=== PATIENT | male | born 1995 | race American Indian/Alaskan Native ===

== ENCOUNTER 2016-10-21 13:44 | Emergency (ER) | payer OTHER ==
[2016-10-21 13:44] VITALS: BMI 23.1
[2016-10-21 13:57] VITALS: BP 113/71; PULSE 60; RESP 18; TEMP 97.9; O2SAT 100
--- NOTE | 2016-10-21 14:06 | C.PDOC ---
History Of Present Illness 21 y/o male presents to the ED for evaluation of an injury to his left thumb which he sustained while at work earlier today. Patient states a cardboard box fell onto his left thumb and he now has lacerations to the area. He denies any other injuries, extremity numbness/weakness, or active bleeding. Time Seen by Provider: 10/21/16 13:54 Chief Complaint (Nursing): Abnormal Skin Integrity History Per: Patient History/Exam Limitations: no limitations Onset/Duration Of Symptoms: Hrs Current Symptoms Are (Timing): Still Present Location Of Injury: Left: Hand (thumb) Additional History Per: Patient Past Medical History Reviewed: Historical Data, Nursing Documentation, Vital Signs Vital Signs: Last Vital Signs Temp 97.9 F 10/21/16 13:50 Pulse 60 10/21/16 13:50 Resp 18 10/21/16 13:50 BP 113/71 10/21/16 13:50 Pulse Ox 100 10/21/16 18:34 - Medical History PMH: No Chronic Diseases Surgical History: No Surg Hx - [facility] Procedures LINEAR REP LID LACER (02/26/13) Family History: States: Unknown Family Hx - Social History Hx Tobacco Use: No Hx Alcohol Use: No Hx Substance Use: Yes - Immunization History Hx Tetanus Toxoid Vaccination: Yes Hx Influenza Vaccination: Yes Hx Pneumococcal Vaccination: No Review Of Systems Except As Marked, All Systems Reviewed And Found Negative. Skin: Positive for: Other (+laceration to left thumb. no active bleeding ) Neurological: Negative for: Weakness, Numbness Physical Exam - Physical Exam Appears: Non-toxic, No Acute Distress Skin: Normal Color, Warm, Dry Head: Atraumatic Eye(s): bilateral: Normal Inspection Extremity: Normal ROM, No Tenderness, Capillary Refill (less than 2 seconds ), No Deformity, No Swelling, Other (+left 1st digit: two, 8mm superficial lacerations. no active bleeding. no joint tenderness ) Pulses: Left Radial: Normal Neurological/Psych: Normal Speech, Normal Cognition, Normal Motor, Normal Sensation Gait: Steady ED Course And Treatment O2 Sat by Pulse Oximetry: 100 (on RA) Pulse Ox Interpretation: Normal Medical Decision Making Medical Decision Making: Wound cleaned and dressed Plan daily soap and water wash Disposition Counseled Patient/Family Regarding: Diagnosis, Need For Followup - Disposition Disposition: HOME/ ROUTINE Disposition Time: 14:08 Condition: GOOD Instructions: Acute Wound Care (ED) Forms: Work Excuse - Clinical Impression Clinical Impression: Thumb laceration - Scribe Statement The provider has reviewed the documentation as recorded by the Scribe (Samantha Downey) Provider Attestation: All medical record entries made by the Scribe were at my direction and personally dictated by me. I have reviewed the chart and agree that the record accurately reflects my personal performance of the history, physical exam, medical decision making, and the department course for this patient. I have also personally directed, reviewed, and agree with the discharge instructions and disposition.
== END 2016-10-21 14:21 | disposition home or self-care (01) ==
LOC: C.ER 13:44
DX: S61.012A Laceration without foreign body of left thumb without damage to nail, initial encounter (principal); W20.8XXA Other cause of strike by thrown, projected or falling object, initial encounter; Y92.89 Other specified places as the place of occurrence of the external cause; Y99.0 Civilian activity done for income or pay

== ENCOUNTER 2016-10-22 03:05 | Emergency (ER) | payer OTHER ==
[2016-10-22 03:05] VITALS: BMI 23.1
[2016-10-22 03:21] VITALS: O2SAT 98
--- NOTE | 2016-10-22 04:41 | C.PDOC ---
History Of Present Illness Patient is a 21 year old male who presents to the ER with a complaint of having a cracked right lower 2nd molar with gingival swelling and tenderness for the past 2 days. Denies fever or recent injury. Time Seen by Provider: 10/22/16 03:31 Chief Complaint (Nursing): Dental Pain History Per: Patient History/Exam Limitations: no limitations Onset/Duration Of Symptoms: Days (2) Current Symptoms Are (Timing): Still Present Recent travel outside of the [place]: No Past Medical History Reviewed: Historical Data, Nursing Documentation, Vital Signs Vital Signs: Last Vital Signs Temp 98.3 F 10/22/16 04:49 Pulse 62 10/22/16 04:49 Resp 18 10/22/16 04:49 BP 118/73 10/22/16 04:49 Pulse Ox 98 10/22/16 06:18 - Medical History PMH: No Chronic Diseases Surgical History: No Surg Hx - [facility] Procedures LINEAR REP LID LACER (02/26/13) Family History: States: Unknown Family Hx - Social History Hx Tobacco Use: No Hx Alcohol Use: No Hx Substance Use: Yes - Immunization History Hx Tetanus Toxoid Vaccination: Yes Hx Influenza Vaccination: Yes Hx Pneumococcal Vaccination: No Review Of Systems Constitutional: Negative for: Fever ENT: Positive for: Mouth Pain (Gingiva), Mouth Swelling (Gingiva) Physical Exam - Physical Exam Appears: Non-toxic, No Acute Distress Skin: Normal Color, Warm, Dry Head: Atraumatic, Normacephalic Eye(s): bilateral: Normal Inspection, PERRL, EOMI Ear(s): Bilateral: Normal Nose: Normal, No Tenderness Oral Mucosa: Moist Tongue: Normal Appearing, No Swelling Lips: Normal Appearing, No Swelling Teeth: Other (Cracked right lower 2nd molar) Gingiva: Swelling (Mild) Throat: No Erythema, No Exudate Neck: Normal ROM, Supple Neurological/Psych: Oriented x3, Normal Speech, Normal Cognition ED Course And Treatment O2 Sat by Pulse Oximetry: 98 (Room air) Pulse Ox Interpretation: Normal Progress Note: Amoxicillin and toradol administered. Disposition - Disposition Referrals: [facility] [Outside] Disposition: HOME/ ROUTINE Disposition Time: 04:37 Condition: GOOD Additional Instructions: Follow up with the dentist within 1-2 days without. return if worsened. Prescriptions: Amoxicillin [Amoxil 500 mg Cap] 500 mg PO TID #29 cap Ibuprofen [Motrin Tab] 800 mg PO TID #20 tab traMADol [Ultram] 50 mg PO Q6 PRN #10 tab PRN Reason: Pain Instructions: Dental Caries (ED) Forms: Work Excuse - Clinical Impression Clinical Impression: Dental caries - Scribe Statement The provider has reviewed the documentation as recorded by the Scribe Chad Melchor All medical record entries made by the Scribe were at my direction and personally dictated by me. I have reviewed the chart and agree that the record accurately reflects my personal performance of the history, physical exam, medical decision making, and the department course for this patient. I have also personally directed, reviewed, and agree with the discharge instructions and disposition.
[2016-10-22 04:50] VITALS: BP 118/73; PULSE 62; RESP 18; TEMP 98.3
== END 2016-10-22 04:51 | disposition home or self-care (01) ==
LOC: C.ER 03:05
DX: K02.9 Dental caries, unspecified (principal)
CPT/HCPCS: 96372; 99283; J1885

== ENCOUNTER 2017-02-02 16:03 | Emergency (ER) | payer OTHER ==
[2017-02-02 16:03] VITALS: BMI 23.1
[2017-02-02 16:13] VITALS: BP 122/76; PULSE 104; RESP 18; TEMP 98.7; O2SAT 99
[2017-02-02] MEDS ORDERED: Tetanus/Diphtheria Toxoids 0.5 ml Syringe IM ONE ×2 (16:18→16:41)
[2017-02-02] MEDS ORDERED: Tmp-Smz 800 mg-160 mg DS Tab PO STA (16:18)
[2017-02-02] MEDS ORDERED: Bacitracin 500 Units/gm Oint Foilpak UD TOP ONE (16:19)
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
[2017-02-02] MEDS ORDERED: Tmp-Smz 800 mg-160 mg DS Tab ONE (16:40)
[2017-02-02] MEDS ORDERED: Bacitracin 500 Units/gm Oint Foilpak UD ONE (16:42)
== END 2017-02-02 16:58 | disposition home or self-care (01) ==
LOC: C.ER 16:03
DX: S01.01XA Laceration without foreign body of scalp, initial encounter (principal); X99.9XXA Assault by unspecified sharp object, initial encounter; Y92.410 Unspecified street and highway as the place of occurrence of the external cause; Z23 Encounter for immunization

== ENCOUNTER 2017-05-02 14:17 | Emergency (ER) | payer SELFPAY ==
[2017-05-02 14:28] VITALS: BMI 20.5
[2017-05-02 14:37] VITALS: BP 106/67; PULSE 65; RESP 18; TEMP 97.9; O2SAT 100
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
== END 2017-05-02 15:10 | disposition home or self-care (01) ==
LOC: C.ER 14:17
DX: Z51.89 Encounter for other specified aftercare (principal)

== ENCOUNTER 2017-06-16 18:40 | Emergency (ER) | payer SELFPAY ==
[2017-06-16 18:41] VITALS: BMI 20.5
[2017-06-16 18:47] VITALS: BP 121/74; PULSE 75; RESP 19; TEMP 97.5; O2SAT 99
--- NOTE | 2017-06-16 22:17 | C.PDOC ---
Time Seen by Provider: 06/16/17 19:23 Chief Complaint (Nursing): ENT Problem Past Medical History Vital Signs: Last Vital Signs Temp 97.5 F L 06/16/17 18:45 Pulse 75 06/16/17 18:45 Resp 19 06/16/17 18:45 BP 121/74 06/16/17 18:45 Pulse Ox 99 06/16/17 18:45 - [facility] Procedures LINEAR REP LID LACER (02/26/13) Family History: States: Unknown Family Hx - Social History Hx Tobacco Use: No Hx Alcohol Use: No Hx Substance Use: Yes - Immunization History Hx Tetanus Toxoid Vaccination: Yes Hx Influenza Vaccination: Yes Hx Pneumococcal Vaccination: No ED Course And Treatment O2 Sat by Pulse Oximetry: 99 Disposition - Disposition Disposition Time: 19:25 Condition: UNKNOWN - Clinical Impression Clinical Impression: Patient left without being seen
== END 2017-06-16 19:23 | disposition left against medical advice (07) ==
LOC: C.ER 18:40
DX: Z02.89 Encounter for other administrative examinations (principal); R07.0 Pain in throat